=== PATIENT | female | born 1935 | race Caucasian/White ===

== ENCOUNTER 2017-04-10 13:17 | Inpatient (IN) | payer MEDICARE ==
--- OUTSIDE RECORDS SUMMARY | 2017-04-10 13:21 | XMS | Clinical Summary ---
:1935 Author Organization [facility] Address [address] [place] [address] Phone Care Team Providers Name Role Phone , Primary Care Provider Unavailable Allergies Not on File Current Medications Not on file Active Problems Not on file Social History Tobacco Use Types Packs/Day Years Used Date Never Assessed Sex Assigned at Date Recorded Not on file Last Filed Vital Signs Not on file Plan of Treatment Not on file Results Not on filefrom Last 3 Months
--- OUTSIDE RECORDS SUMMARY | 2017-04-10 13:21 | XMS | Clinical Summary ---
:1935 Author Organization [facility] Address [address] [place] [id number] Phone Care Team Providers Name Role Phone , Primary Care Provider Unavailable Allergies Active Allergy Reactions Severity Noted Date Comments Sulfa (Sulfonamide Antibiotics) Rash Low 02/23/2014 Current Medications Prescription Sig. Disp. Refills Start Date End Date Status calcium carbonate Take 600 mg by mouth Active (OS-SARAY) 600 mg (1,500 2 (two) times daily mg) Tab with breakfast and dinner. cholecalciferol, vitamin Take by mouth. Active D3, 2,000 unit Cap fluticasone (FLOVENT Inhale 1 puff by Active HFA) 110 mcg/actuation mouth via inhaler 2 inhaler (two) times daily. fluticasone-salmeterol Inhale 1 puff by Active (ADVAIR) 500-50 mcg/dose mouth via inhaler 2 diskus inhaler (two) times daily. levothyroxine Take 88 mcg by mouth Active (SYNTHROID, LEVOTHROID) daily. 88 MCG tablet MAGNESIUM CHLORIDE Take 128 mg by mouth Active (SLOW-MAG ORAL) daily. meloxicam (MOBIC) 7.5 MG Take 7.5 mg by mouth Active tablet daily. metoprolol (LOPRESSOR) Take 25 mg by mouth Active 25 MG tablet 2 (two) times daily. NIFEdipine (ADALAT CC) Take 30 mg by mouth Active 30 MG 24 hr tablet daily. nitroglycerin Place 0.4 mg under Active (NITROSTAT) 0.4 MG SL the tongue every 5 tablet (five) minutes as needed for Chest pain. omeprazole (PRILOSEC) 20 Take 20 mg by mouth Active MG capsule daily. PARoxetine (PAXIL) 20 MG Take 20 mg by mouth Active tablet every morning. POLYETHYLENE GLYCOL 3350 Take by mouth. Active (MIRALAX ORAL) pregabalin (LYRICA) 50 Take 50 mg by mouth Active MG capsule 3 (three) times daily. simvastatin (ZOCOR) 40 Take 40 mg by mouth Active MG tablet nightly. tiotropium (SPIRIVA) 18 Inhale 18 mcg by Active mcg inhalation capsule mouth via inhaler daily. aspirin 81 MG EC tablet Take 81 mg by mouth Active daily. 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;Intraductal carcinoma in situ of right breast 01/28/2017 Outside Orders Radiology Joana Rasmussen Intraductal carcinoma in YUNG [place] situ of right breast (Primary Dx) 01/28/2017 Outside Orders Radiology Joana Rasmussen Intraductal carcinoma YUNG [place] (Primary Dx) from Last 3 Months Social History Tobacco Use Types Packs/Day Years Used Date Former Smoker Smokeless Tobacco: Never Used Comments:Quit 1996 Alcohol Use Drinks/Week oz/Week Comments No Sex Assigned at Date Recorded Not on file Last Filed Vital Signs Vital Sign Reading Time Taken Blood Pressure 119/48 03/30/2014 3:35 PM CDT Pulse 67 03/30/2014 3:47 PM CDT Temperature 36.4 C (97.6 F) 03/30/2014 2:20 PM CDT Respiratory Rate 19 03/30/2014 3:47 PM CDT Oxygen Saturation 94% 03/30/2014 3:47 PM CDT Inhaled Oxygen Concentration - - Weight 120.7 kg (266 lb) 03/30/2014 10:15 AM CDT Height 165.1 cm (5' 5") 03/30/2014 10:15 AM CDT Body Mass Index 44.26 03/30/2014 10:15 AM CDT Plan of Treatment Not on file Results MM digital mammo diagnostic right (01/28/2017 12:12 PM) Specimen Performing Laboratory GE RIS Narrative #[id number] - DIGITAL, MAMMO, UNILATERAL, RIGHT INCLUDING CAD UNILATERAL RIGHT DIGITAL DIAGNOSTIC MAMMOGRAM 3D/2D WITH CAD: 01/28/2017 CLINICAL: History of left mastectomy and right lumpectomy for bilateral breast cancer presents for annual mammography of the right breast. No new complaints. Comparison is made to exams dated:01/16/2016 mammogram, 01/10/2015 mammogram, and 03/30/2014 [facility]. There are scattered fibroglandular elements in the right breast that could obscure a lesion on mammography. Tomosynthesis 3D imaging of the right breast was also performed. Current study was also evaluated with a Computer Aided Detection (CAD) system. Vascular calcifications are present in the right breast. Postsurgical changes of right lumpectomy are noted. No significant masses, calcifications, or other findings are seen in the breast. There has been no significant interval change. IMPRESSION: BENIGN There is no mammographic evidence of malignancy in the right breast. A 1 year screening mammogram is recommended. The results and recommendation(s) were discussed with Jeramie Lara before she left our facility. Nathalie Billings M.D. ds/:01/28/2017 12:12:48 Normal [facility]Rad 1-2 Mammogram BI-RADS: 2 Benign Procedure Note Interface, External Ris In - 01/29/2017 7:20 AM CDT #[id number] - DIGITAL, MAMMO, UNILATERAL, RIGHT INCLUDING CAD UNILATERAL RIGHT DIGITAL DIAGNOSTIC MAMMOGRAM 3D/2D WITH CAD: 01/28/2017 CLINICAL: History of left mastectomy and right lumpectomy for bilateral breast cancer presents for annual mammography of the right breast. No new complaints. Comparison is made to exams dated: 01/16/2016 mammogram, 01/10/2015 mammogram, and 03/30/2014 [facility]. There are scattered fibroglandular elements in the right breast that could obscure a lesion on mammography. Tomosynthesis 3D imaging of the right breast was also performed. Current study was also evaluated with a Computer Aided Detection (CAD) system. Vascular calcifications are present in the right breast. Postsurgical changes of right lumpectomy are noted. No significant masses, calcifications, or other findings are seen in the breast. There has been no significant interval change. IMPRESSION: BENIGN There is no mammographic evidence of malignancy in the right breast. A 1 year screening mammogram is recommended. The results and recommendation(s) were discussed with Ms. Lara before she left our facility. Nathalie Billings M.D. ds/:01/28/2017 12:12:48 Normal BiRad 1-2 Mammogram BI-RADS: 2 Benign from Last 3 Months Advance Directives Patient has advance directives. For more information, please contact:[address] [phone]
[2017-04-10] MEDS ORDERED: Dexamethasone 4 mg/ml Vial ONE (14:07)
[2017-04-10 14:21] LABS: Oxyhemoglobin 91.4 % (94.0-97.0); Sodium 136 mmol/L (135-148)
[2017-04-10 14:21] LABS: Hematocrit 38.7 % (36.0-47.0); Mean Platelet Volume 8.7 fL (7.4-10.4); Red Blood Cell (RBC) Count 4.34 mill/uL (4.20-5.40); White Blood Cell (WBC) Count 6.5 thou/uL (4.8-10.8)
[2017-04-10 14:26] LABS: Prothrombin Time 13.6 SEC (12.0-14.7)
[2017-04-10 14:27] LABS: PTT 24.3 SEC (22.9-36.1)
--- NOTE | 2017-04-10 14:31 | RAD ---
PORTABLE AP CHEST XRAY: DATE: 04/10/17. HISTORY: Chest pain and shortness of breath. COMPARISON: 03/25/17. FINDINGS: Cardiac silhouette and pulmonary vasculature are within normal limits for the portable technique of the study. There is mild interstitial prominence again seen at the right lung base which is overall stable from the prior study. Surgical clips again overlie the left chest, left axillary region, as well as lower left neck. Vascular calcification is seen in the thoracic aorta. There has been no interval change when compared to the prior exam. IMPRESSION: Stable chest including stable mild prominence of interstitial densities at the right lung base which are overall nonspecific. POS: [facility]
[2017-04-10 14:32] LABS: Mode RA; Modified Allen's Test NOT DONE; Vent NO
[2017-04-10 14:35] LABS: Lactic Acid - Sepsis 1.3 mmol/L (0.5-2.2)
[2017-04-10 14:44] LABS: Neutrophil 39 % (42-75); Troponin I Less than 0.010 ng/mL (< 0.028)
[2017-04-10 14:51] LABS: ALT (SGPT) 56 U/L (8-55); AST (SGOT) 52 U/L (5-34); Alkaline Phosphatase 57 U/L (40-150); Anion Gap 12 mmol/L (10-20); BUN (Urea Nitrogen) 28 mg/dL (9.8-20.1); Bilirubin, Total 0.2 mg/dL (0.2-1.2); CK (CPK) 114 U/L (29-168); Calc. Creatinine Clearance 0 mL/min (70-130); Calcium 8.9 mg/dL (7.8-10.44); Carbon Dioxide 23 mmol/L (23-31); Chloride 103 mmol/L (98-107); Estimated GFR-MDRD 39; Globulin 3.4 g/dL (2.4-3.5); Lipase 32 U/L (8-78); Protein, Total 6.9 g/dL (6.0-8.3)
--- NOTE | 2017-04-10 15:05 | CT ---
CT BRAIN WITHOUT CONTRAST: Date: 04/10/17 HISTORY: Fall, headache. FINDINGS: Comparison made with exam of 12/05/10. Changes of cortical atrophy and chronic small vessel ischemic disease are again seen. There is a sma ll focal area of low density in the right thalamus, which was not seen on the previous study. No tra nscortical infarct, hemorrhage, midline shift, or abnormal extra-axial fluid collections are seen. T he bony calvarium is intact. The visualized paranasal sinuses and mastoid air cells are well aerated . IMPRESSION: Age-indeterminate lacunar infarction in the right thalamus. POS: [facility]
--- NOTE | 2017-04-10 15:09 | CT ---
CT OF PELVIS PERFORMED WITHOUT CONTRAST ENHANCEMENT: Date: 04/10/17 HISTORY: Fall last week with right hip pain, now with increasing left-sided hip pain. FINDINGS: The visualized intrapelvic contents are unremarkable. No pelvic masses or fluid collections. There are arthritic changes of both SI joints. There is old post-traumatic change to the left side o f the symphysis. I do not see any signs of an acute fracture. The bones are demineralized. If patien t has continued pain, consideration for MRI would be recommended. IMPRESSION: No CT evidence for any acute fracture. POS: [facility]
--- NOTE | 2017-04-10 16:21 | CT ---
CT PULMONARY ANGIOGRAM WITH IV CONTRAST AND 3D POSTPROCESSING: HISTORY: Elevated D-dimer, cough. FINDINGS: There is a significant amount of motion seen (the patient was coughing during the scan). The peripheral branches of the pulmonary arterial vasculature are not satisfactorily evaluated due t o artifact. The main pulmonary arteries show no filling defects. The thoracic aorta is well opacif ied without aneurysm or dissection. No pleural or pericardial effusions are noted. No pneumothorac es, focal areas of consolidation, or lung masses are noted. There are degenerative changes in the s pine. A 9 mm prevascular lymph node is noted. IMPRESSION: Exam limited due to motion. No evidence of central pulmonary embolism. POS: [facility]
[2017-04-10] MEDS ORDERED: ISOVUE-370 76%-LOCM 1 ML ONE (16:40)
[2017-04-10 17:02] LABS: Bilirubin Negative (Negative); Blood, Urine Negative (Negative); Glucose, Urine (Dipstick) Negative (Negative); Ketone, Urine Negative (Negative); Nitrite Negative (Negative); Protein, Urine (Dipstick) Negative (Neg-Trace); Urobilinogen 0.2 mg/dL (0.2-1.0)
[2017-04-10 17:10] LABS: Bacteria/HPF Rare-Few HPF (None Seen); Hyaline Casts/LPF 7-10 HYALINE CAST LPF (0-3 Hyaline)
[2017-04-10 17:24] LABS: RBC/HPF None Seen HPF (0-3)
[2017-04-10] MEDS ORDERED: Dextrose 50% Abboject 50 ML SYRINGE SLOW IVP PRN (18:15)
[2017-04-10] MEDS ORDERED: HYDROcodone/Acetaminophen 5/325 mg Tablet PO PRN (18:15)
[2017-04-10] MEDS ORDERED: Loratadine 10 MG TAB PO SCH (18:15)
[2017-04-10] MEDS ORDERED: Dextrose 5% in Water 1,000 ML IV PRN (18:15)
[2017-04-10] MEDS ORDERED: HumaLOG 300 UNITS/3 ML VIAL SC PRN ×2 (18:15)
[2017-04-10] MEDS ORDERED: Lorazepam 0.5 MG TAB PO PRN (18:15)
[2017-04-10] MEDS ORDERED: Acetaminophen 325 MG TAB PO PRN (18:15)
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
[2017-04-10] MEDS: Mometasone/Formoterol 120 PUFF INHALER INH SCH (18:58)
[2017-04-10] MEDS: Atorvastatin Calcium 20 MG TAB PO SCH (20:51)
[2017-04-10] MEDS: Docusate 100 MG CAP PO SCH (20:51)
[2017-04-10] MEDS: guaiFENesin ER 600 MG TAB PO SCH (20:51)
[2017-04-10] MEDS: Azithromycin 500 MG in Sodium Chloride 0.9% 250 ML 250 ML IVPB SCH (20:51)
[2017-04-10] MEDS: Pregabalin 50 MG CAP PO SCH (20:52)
[2017-04-10] MEDS: cefTRIAXone\\ROCEPHIN 1 GM in Sodium Chloride 0.9% 100 ML IVPB SCH (22:27)
[2017-04-11] MEDS: Levothyroxine Sodium 88 MCG TAB PO SCH (05:22)
[2017-04-11 06:09] LABS: Anion Gap 10 mmol/L (10-20); BUN (Urea Nitrogen) 21 mg/dL (9.8-20.1); Calc. Creatinine Clearance 65 mL/min (70-130); Calcium 8.5 mg/dL (7.8-10.44); Carbon Dioxide 26 mmol/L (23-31); Chloride 106 mmol/L (98-107); Cholesterol 112 mg/dl (< 200 Desired); Estimated GFR-MDRD 55; LDL Cholesterol, Calculated 47 mg/dL
[2017-04-11 06:10] LABS: Band 2 % (5-11); Hematocrit 34.8 % (36.0-47.0); Mean Platelet Volume 8.6 fL (7.4-10.4); Neutrophil 71 % (42-75); Red Blood Cell (RBC) Count 3.89 mill/uL (4.20-5.40)
[2017-04-11] MEDS: Mometasone/Formoterol 120 PUFF INHALER INH SCH ×2 (07:42→19:20)
[2017-04-11] MEDS ORDERED: Spiriva 18 MCG CAP (Box of 5 Caps) INH SCH (09:00)
[2017-04-11] MEDS: NIFEdipine XL 30 MG TAB PO SCH (09:19)
[2017-04-11] MEDS: Docusate 100 MG CAP PO SCH ×2 (09:19→20:48)
[2017-04-11] MEDS: guaiFENesin ER 600 MG TAB PO SCH ×2 (09:20→20:48)
[2017-04-11] MEDS: Aspirin 325 mg Enteric Coated Tablet PO SCH (09:20)
[2017-04-11] MEDS: predniSONE 20 MG TAB PO SCH (09:20)
[2017-04-11] MEDS: Enoxaparin Sodium 30 MG/0.3 ML SYRINGE SC SCH (09:20)
[2017-04-11] MEDS: Potassium Chloride 20 MEQ TAB PO SCH (09:20)
--- NOTE | 2017-04-11 11:36 | PDOC.PN ---
- Subjective Encounter Start Date: 04/11/17 Encounter Start Time: 11:34 Ms. Lara says she does not feel much better today than she did yesterday. She still feels very congested especially in her head. - Objective Resuscitation Status: Resuscitation Status FULL:Full Resuscitation MAR Reviewed: Yes Vital Signs & Weight: Vital Signs (12 hours) Temp Pulse Resp BP Pulse Ox 04/11/17 09:19 79 04/11/17 08:00 98.8 F 79 20 97 04/11/17 07:42 79 20 97 04/11/17 07:40 98.8 F 74 18 146/57 H 97 04/11/17 07:34 97 04/11/17 07:31 79 20 97 04/11/17 06:18 98.0 F 74 18 169/59 H 98 04/11/17 04:00 97.8 F 83 18 166/72 H 94 L 04/11/17 00:13 74 18 95 Weight Weight 204 lb 3.2 oz I&O: 04/10/17 04/11/17 04/12/17 06:59 06:59 06:59 Intake Total 750 480 Balance 750 480 Result Diagrams: 04/11/17 05:14 04/11/17 05:14 Additional Labs: Accuchecks 04/11/17 04/10/17 04/10/17 05:48 20:42 18:23 POC Glucose 141 H 195 H 134 H Phys Exam - Physical Examination HEENT: PERRLA Respiratory: no wheezing + rhonchi bilaterally, Cardiovascular: RRR, no significant murmur Gastrointestinal: soft, non-tender, positive bowel sounds Musculoskeletal: no edema Dx/Plan (1) Acute and chronic respiratory failure Code(s): J96.20 - ACUTE AND CHR RESP FAILURE, UNSP W HYPOXIA OR HYPERCAPNIA Status: Acute (2) COPD exacerbation Code(s): J44.1 - CHRONIC OBSTRUCTIVE PULMONARY DISEASE W (ACUTE) EXACERBATION Status: Acute (3) CVA (cerebral vascular accident) Code(s): I63.9 - CEREBRAL INFARCTION, UNSPECIFIED Status: Acute - Plan * COPD- will continue Azithromycin and Rocephin, Prednisone * Allergic rhinitis- will add Flonase, and benadryl in the evenings * CVA- age uncertain- MRI, echo and carotids are pending * Continue aspirin, Lipitor.
[2017-04-11] MEDS ORDERED: Fluticasone Propionate Nasal Spray 16 gm Bottle NASAL SCH (11:45)
--- NOTE | 2017-04-11 11:55 | MRI ---
MRI BRAIN NONCONTRAST: HISTORY: 81-year-old female with age-indeterminate lacunar infarction in the right thalamus, as seen on yeste rday's CT. FINDINGS: The ventricles are normal in size and configuration. There is no restricted diffusion, midline shif t or any other mass effect, recent intraaxial hemorrhage, or extraaxial fluid collection. There is a moderate degree of T2-hyperintensities in the cerebral white matter consistent with chronic ischemi c white matter changes due to microvascular atherosclerosis. There is a small, approximately 0.8 x 0 .4 cm lesion in the right thalamus, without restricted diffusion. IMPRESSION: 1. Moderate chronic ischemic white matter changes. 2. Small old lacunar infarction in the right thalamus. 3. No acute findings. jnr POS: [facility]
--- NOTE | 2017-04-11 12:30 | ULT ---
ULTRASOUND VENOUS DOPPLER BILATERAL: Date: 04/11/17 HISTORY: Hip pain for 2 months. Right hip pain. History of deep venous thrombosis. COMPARISON: Doppler 2013. TECHNIQUE: Real-time Oro scale with color Doppler and spectral analysis of bilateral lower extremity venous sy stems was performed. The common femoral, femoral, proximal portions of greater saphenous, and deep f emoral veins, as well as the popliteal and posterior tibial veins were interrogated. FINDINGS: Normal flow, augmentation, and compression. IMPRESSION: No deep venous thrombosis. POS: [facility]
--- NOTE | 2017-04-11 12:34 | ULT ---
ULTRASOUND CAROTID DOPPLER: Date: 04/11/17 HISTORY: Cerebrovascular accident. COMPARISON: None. TECHNIQUE: Real-time Oro scale and color Doppler evaluation of the extracranial carotid arteries and vertebral arteries was performed with the linear transducer. FINDINGS: Elevated peak systolic velocity in the right mid and distal internal carotid arteries measuring 138 and 140 cm/second, respectively. There is also mildly elevated peak systolic velocity within the lef t internal carotid artery. Antegrade flow to both vertebral arteries. IMPRESSION: 1. 50-69% stenosis right internal carotid artery. 2. 50-69% stenosis of the left proximal internal carotid artery. 3. CT angiogram may be beneficial in this patient. POS: [facility]
[2017-04-11 13:37] VITALS: BMI 31.0
--- NOTE | 2017-04-11 16:47 | PDOC.EVN ---
Event Note - Event Note Event Note: Discussed the results of the carotid doppler with Ms. Lara. She says she would like to proceed with the CTA.
[2017-04-11] MEDS: Azithromycin 500 MG in Sodium Chloride 0.9% 250 ML 250 ML IVPB SCH (20:46)
[2017-04-11] MEDS: cefTRIAXone\\ROCEPHIN 1 GM in Sodium Chloride 0.9% 100 ML IVPB SCH (20:47)
[2017-04-11] MEDS: Atorvastatin Calcium 20 MG TAB PO SCH (20:47)
[2017-04-11] MEDS: Pregabalin 50 MG CAP PO SCH (20:49)
[2017-04-11] MEDS ORDERED: diphenhydrAMINE HCl 25 MG CAP PO SCH (21:00)
[2017-04-12] MEDS: Levothyroxine Sodium 88 MCG TAB PO SCH (05:34)
[2017-04-12] MEDS: Potassium Chloride 20 MEQ TAB PO SCH (08:23)
[2017-04-12] MEDS: Aspirin 325 mg Enteric Coated Tablet PO SCH (08:24)
[2017-04-12] MEDS: Docusate 100 MG CAP PO SCH (08:24)
[2017-04-12] MEDS: NIFEdipine XL 30 MG TAB PO SCH (08:24)
[2017-04-12] MEDS: predniSONE 20 MG TAB PO SCH (08:24)
[2017-04-12] MEDS: Enoxaparin Sodium 30 MG/0.3 ML SYRINGE SC SCH (08:25)
[2017-04-12] MEDS: guaiFENesin ER 600 MG TAB PO SCH (08:25)
[2017-04-12] MEDS ORDERED: Fluticasone Propionate Nasal Spray 16 gm Bottle NASAL SCH (09:00)
[2017-04-12] MEDS: Mometasone/Formoterol 120 PUFF INHALER INH SCH (09:24)
--- NOTE | 2017-04-12 10:24 | CT ---
CT ANGIOGRAM OF NECK WITH CONTRAST: Date: 04/12/17 HISTORY: 81-year-old female with carotid atherosclerotic disease. Abnormal carotid Doppler ultrasound. TECHNIQUE: Following IV contrast bolus injection, arterial bolus chasing technique scan performed from bottom o f yadiel to the mid orbits. Coronal and sagittal 3D MIP reconstructions. FINDINGS: Nonspecific diffuse interstitial changes throughout the visualized upper lung masters. Atheroscleroti c calcification and tortuosity of many of the major arteries. Tortuous, medialized bilateral common carotid arteries and carotid bulbs in retropharyngeal locations. Moderate calcified plaque at the bi lateral proximal internal carotid arteries, with estimated approximately 30% stenosis on the right a nd approximately 10-20% stenosis in the left. The rest of the internal carotid arteries demonstrate no high grade stenosis. Likewise, no high grade stenosis identified in the bilateral common carotids , bilateral subclavians, bilateral vertebrals, and brachiocephalic. Bovine origin of left common car otid from innominate artery. Slightly dominant left vertebral artery arises from the aortic arch rat her than from the left subclavian artery, an anatomical variant. Severe cervical spondylosis. No hig h grade stenosis or occlusion identified in the proximal portions of the havasupai of Ochoa. Severe DJ D of bilateral TMJ's. IMPRESSION: 1. Atherosclerosis of carotids and most of the major arteries of the neck. 2. No high grade stenosis of internal carotid arteries. 3. Severe cervical spondylosis. 4. Severe osteoarthrosis of bilateral temporomandibular joints. POS: [facility]
--- NOTE | 2017-04-12 14:09 | PDOC.PN ---
- Subjective Encounter Start Date: 04/12/17 Encounter Start Time: 14:07 Ms. Lara is feeling a little better. - Objective Resuscitation Status: Resuscitation Status FULL:Full Resuscitation MAR Reviewed: Yes Vital Signs & Weight: Vital Signs (12 hours) Temp Pulse Resp BP Pulse Ox 04/12/17 11:44 97.9 F 103 H 16 142/76 H 91 L 04/12/17 09:24 80 24 H 97 04/12/17 09:10 97 04/12/17 09:02 83 24 H 97 04/12/17 08:24 77 04/12/17 07:38 98 F 77 18 155/60 H 97 04/12/17 07:17 97.5 F L 86 16 97 04/12/17 05:35 97.5 F L 86 16 151/67 H 96 04/12/17 03:54 98.0 F 88 16 158/62 H 94 L Weight Admit Weight 204 lb 3.2 oz Weight 204 lb 3.2 oz I&O: 04/11/17 04/12/17 04/13/17 06:59 06:59 06:59 Intake Total 750 1200 960 Balance 750 1200 960 Result Diagrams: 04/11/17 05:14 04/11/17 05:14 Additional Labs: Accuchecks 04/12/17 04/12/17 04/11/17 10:54 05:32 21:38 POC Glucose 120 H 100 153 H 04/11/17 17:12 POC Glucose 194 H Phys Exam - Physical Examination HEENT: PERRLA Respiratory: clear to auscultation bilateral with the exception of some mild expiratory wheezing Cardiovascular: RRR, no significant murmur, no rub Gastrointestinal: soft, non-tender, positive bowel sounds Musculoskeletal: no edema Dx/Plan (1) Acute and chronic respiratory failure Code(s): J96.20 - ACUTE AND CHR RESP FAILURE, UNSP W HYPOXIA OR HYPERCAPNIA Status: Acute (2) COPD exacerbation Code(s): J44.1 - CHRONIC OBSTRUCTIVE PULMONARY DISEASE W (ACUTE) EXACERBATION Status: Acute (3) CVA (cerebral vascular accident) Code(s): I63.9 - CEREBRAL INFARCTION, UNSPECIFIED Status: Acute - Plan * COPD exacerbation- improving * CVA- CTA results and Echo results noted- will not change therapy * She is stable for discharge home..
[2017-04-12 15:25] VITALS: BP 174/60; TEMP 98.7
--- NOTE | 2017-04-12 16:41 | DIS ---
DATE OF ADMISSION: 04/10/2017 DATE OF DISCHARGE: 04/12/2017 PRIMARY CARE PHYSICIAN: Ariel Gallegos M.D. DISCHARGE DISPOSITION: Home. PRIMARY DISCHARGE DIAGNOSES: 1. Acute on chronic respiratory failure with hypoxemia secondary to chronic obstructive pulmonary d isease exacerbation. 2. Cerebrovascular accident. 3. Chronic fatigue. 4. Hypothyroidism. 5. History of breast cancer. 6. Hypertension. 7. Diabetes mellitus. 8. Allergic rhinitis. 9. Obstructive sleep apnea on continuous positive airway pressure. DISCHARGE MEDICATIONS: Include azithromycin 250 mg p.o. daily, DuoNebs 1 treatment q.i.d. for 5 day s and then q.6 hours as needed, metformin 250 mg at bedtime, metformin 850 mg at bedtime, Benadryl 2 5 mg at bedtime, Effexor 75 mg at bedtime, Spiriva 18 mcg inhaled daily, tamoxifen 20 mg at bedtime, simvastatin 40 mg at bedtime, omeprazole 20 mg twice a day, Procardia 30 mg daily, Lopressor 25 mg twice daily, meloxicam 7.5 mg twice a day, Slow-Mag 64 mg daily, loratadine 10 mg at bedtime, DuoNeb s 1 treatment q.i.d., Neurontin 300 mg twice a day, Lasix 40 mg as needed, donepezil 5 mg twice donny y, vitamin D 2000 units at bedtime, calcium carbonate, magnesium oxide, copper, magnesium, and zinc 1 tablet twice a day, Symbicort 160/4.5 two puffs twice daily, and aspirin 81 mg a day. PROCEDURES DONE DURING ADMISSION: The patient had a CT angiogram of the chest showing no evidence o f any central pulmonary embolism. The patient had a CT scan of the brain showing an age indetermina te lacunar infarct in the right thalamus. The patient had a CT scan of the pelvis showing no eviden ce for fracture. She had bilateral carotid Dopplers showing 50%-69% stenosis in both the right and left internal carotid artery. The patient had a venogram of the lower extremity showing no deep vei n thrombosis of either lower extremity. She had an MRI of the brain showing moderate chronic ischem ic white matter changes. There was a small old lacunar infarct in the right thalamus and she had a CT angiogram showing arthrosclerosis of the carotids in most of the major arteries of the neck, but there was no high-grade stenosis in the internal carotid arteries. She had an echocardiogram in [facility] there was normal LV size and thickness. The systolic ejection fraction was 60-65%. She had some E to A flow reversal noted suggestive of diastolic dysfunction. CODE STATUS: FULL CODE. ALLERGIES: To AVOCADO and SULFA. HOSPITAL COURSE: Ms. Lara is a very pleasant 81-year-old female that presented to the emergency room complaining of cough and congestion. She says which had not improved with outpatient treatmen t. She had been given a course of Levaquin without much improvement. She also felt generally weak and tired and fatigued. She was admitted due to an acute on chronic respiratory failure. She was o riginally hypoxic requiring supplemental oxygen; however, this was later able to be titrated. She w as placed on antibiotics and steroids and improved. It was also found by CT scan that she had a pre vious lacunar infarct. She had an evaluation for this which was essentially negative except for jessica e carotid plaque, but no flow-limiting disease. She complained of feeling fatigued throughout much of her hospital stay and upon further questioning, it was found that the patient also has obstructiv e sleep apnea in which she does not use her CPAP machine on a regular basis. This was revealed to kenzie knight by the patient's daughter at the time of discharge. In addition to that, I suspect she has signif icant allergic rhinitis which hampers her sleep as well and that along with COPD is likely the cause of her chronic fatigue symptoms. She was instructed to follow up with using her CPAP on a regular basis and she may need a repeat sleep study as this has been almost 2 years and likely time for anot her test and also she was given some tips with regards to the allergic rhinitis as well and she is t o follow up with Dr. Gallegos in approximately 3-5 days on either Thursday or Thursday.
[2017-04-12] MEDS ORDERED: Gabapentin 300 MG CAP PO SCH (21:00)
[2017-04-12] MEDS ORDERED: FLU VACC TS2017-18 (>65YR) 0.5 ML SYRINGE IM ONE (21:00)
[2017-04-12] MEDS ORDERED: Metoprolol Tartrate 25 MG TAB PO SCH (21:00)
== END 2017-04-12 16:06 | disposition home or self-care (01) | DRG 190 ==
LOC: ERS 13:17 → 2NO 15:55 → 2SE 04-11 06:22
PROVIDERS: ADMIT Internal Medicine; ATTEND Internal Medicine
DX: J44.1 Chronic obstructive pulmonary disease with (acute) exacerbation (principal); J96.21 Acute and chronic respiratory failure with hypoxia; C50.919 Malignant neoplasm of unspecified site of unspecified female breast; I10 Essential (primary) hypertension; Z23 Encounter for immunization; Z91.81 History of falling; E03.9 Hypothyroidism, unspecified; Z88.2 Allergy status to sulfonamides; Z87.891 Personal history of nicotine dependence; Z79.818 Long term (current) use of other agents affecting estrogen receptors and estrogen levels; E11.9 Type 2 diabetes mellitus without complications; Z79.84 Long term (current) use of oral hypoglycemic drugs; G47.33 Obstructive sleep apnea (adult) (pediatric); J30.9 Allergic rhinitis, unspecified; Z96.653 Presence of artificial knee joint, bilateral; Z86.73 Personal history of transient ischemic attack (TIA), and cerebral infarction without residual deficits
CPT/HCPCS: 36415; 36416; 70450; 70498; 70551; 71010; 71275; 72192; 80048; 80053; 80061; 81003; 81015; 82553; 82805; 83605; 83690; 83880; 84439; 84443; 84484; 85025; 85379; 85610; 85730; 87040; 87086; 90471; 90682; 93005; 93306; 93880; 93970; 94640; 96361; 96365; 96366; 96375; G0008; G8978-GP-CJ; G8979-GP-CJ; G8980-GP-CJ; J0456; J0696; J1100; J1650; J1956; J7050; J7506; J7620; Q2036

== ENCOUNTER 2017-08-10 07:43 | Outpatient (CLI) | payer MEDICARE ==
--- NOTE | 2017-08-10 11:35 | CT ---
CT ABDOMEN AND PELVIS WITH ORAL AND IV CONTRAST: Date: 08/10/17 HISTORY: Right upper quadrant abdominal pain. FINDINGS: There are chronic changes in the lung bases, also seen on the CT pulmonary angiogram of 04/10/17. There is a 1.5 cm cyst in the left lobe of the liver. Multiple calcified gallstones are present. The spleen, pancreas, adrenal glands, and kidneys are normal. No free air, free fluid, or lymphadenopathy seen in the abdomen or pelvis. The small bowel loops are not abnormally dilated. A normal appearing appendix is present. There are vascular calcifications wit hout evidence of aneurysmal dilatation of the abdominal aorta. There are postop changes of vertebropl asty in the lower thoracic/upper lumbar spine. There are old healed fractures of the superior pubic r ami. A few scattered colonic diverticula are noted. The patient is post hysterectomy. IMPRESSION: 1. Liver cyst. 2. Cholelithiasis. 3. Mild colonic diverticulosis. POS: [facility]
--- NOTE | 2017-08-10 11:42 | RAD ---
TWO VIEWS OF THE CHEST: HISTORY: COPD and persistent cough. COMPARISON: 03/25/2017 FINDINGS: Two views of the chest show an enlarged but stable cardiomediastinal silhouette. There is no evidenc e of consolidation, mass, or pleural effusion. Degenerative changes are seen in the spine. Vertebro plasty cement is seen within the compression fractures of the lower thoracic spine. IMPRESSION: No evidence of acute cardiopulmonary disease. POS: [facility]
== END 2017-08-10 07:44 | disposition home or self-care (01) ==
LOC: CT 07:43
PROVIDERS: ATTEND General Practice
DX: R10.11 Right upper quadrant pain (principal); R05 Cough; K76.89 Other specified diseases of liver; K80.20 Calculus of gallbladder without cholecystitis without obstruction; K57.30 Diverticulosis of large intestine without perforation or abscess without bleeding
CPT/HCPCS: 71046; 74177

== ENCOUNTER 2017-09-30 13:03 | Outpatient (CLI) | payer MEDICARE | END 2017-09-30 13:04 | disposition home or self-care (01) | LOC: BICMRI 13:03 | PROVIDERS: ATTEND Anesthesiology Pain Medicine | DX: S32.050A Wedge compression fracture of fifth lumbar vertebra, initial encounter for closed fracture (principal); M47.896 Other spondylosis, lumbar region | CPT/HCPCS: 72148 ==

== ENCOUNTER 2018-02-23 13:16 | Outpatient (CLI) | payer MEDICARE | END 2018-02-23 13:17 | disposition home or self-care (01) | LOC: BICMAMMO 13:16 | PROVIDERS: ATTEND General Practice | DX: Z13.820 Encounter for screening for osteoporosis (principal); Z85.3 Personal history of malignant neoplasm of breast; Z80.3 Family history of malignant neoplasm of breast | CPT/HCPCS: 77065; G0279 ==

== ENCOUNTER 2019-04-01 13:09 | Day surgery (SDC) | payer MEDICARE ==
[2019-04-01] MEDS ORDERED: Bupivacaine/Epinephrine 0.25% 30 ML VIAL ONE (13:23)
[2019-04-01] MEDS ORDERED: Bacitracin Zinc Ointment 30 gm TUBE ONE (13:30)
[2019-04-01] MEDS ORDERED: Lidocaine 1% PF 5 ML VIAL ONE (13:39)
[2019-04-01] MEDS ORDERED: Ondansetron PF 4 MG/2 ML Vial ONE (13:39)
[2019-04-01] MEDS ORDERED: Fentanyl 100 MCG/2 ML VIAL ONE ×2 (13:39→15:25)
[2019-04-01] MEDS ORDERED: ePHEDrine 50 MG/ML VIAL ONE (13:39)
[2019-04-01] MEDS ORDERED: PROPOFOL 200 MG/20 ML VIAL ONE (13:39)
--- NOTE | 2019-04-01 15:08 | HP ---
CHIEF COMPLAINT: Fall, head lac. HISTORY OF PRESENT ILLNESS: This is an 83-year-old female, who presents with a history of fall. She tripped over her oxygen carrier in her house, coming out of the restroom. She hit her head. No loss of consciousness. She had bleeding from her forehead. She has an open laceration to her forehead and scalp. Seen at [facility] by Dr. Huffman. CT scan of the head is within normal limits. She is awake, alert, hemodynamically stable. PAST MEDICAL HISTORY: Includes COPD, colon cancer, breast cancer, hypertension, and diabetes mellitus type 2. SURGICAL HISTORY: Colon surgery and breast surgery. MEDICATIONS: Taken daily, 1. Metoprolol. 2. Meloxicam. 3. Metformin. 4. Spiriva. 5. Claritin. 6. Procardia. 7. Aspirin. ALLERGIES: SULFA. SOCIAL HISTORY: Former smoker. No alcohol or other drugs. REVIEW OF SYSTEMS: Ten-system review of systems is otherwise negative unless described above. PHYSICAL EXAMINATION: VITAL SIGNS: Her blood pressure is 140/88. Her pulse is 73. HEENT: There is a 10 cm laceration extending from the medial eyebrow up. She has intact facial nerve temporal branches, zygomatic branches. She has all branches of the facial nerve appear intact. She is able to blink, open her eyes and there are equal features on both sides. No visual changes. She has a small amount of bruising around the medial aspect of her left eye. Sclerae anicteric. Oropharynx is clear. NECK: No lymphadenopathy. CHEST: Clear. HEART: Regular rate and rhythm. ABDOMEN: Soft, nontender, nondistended. EXTREMITIES: No extremity deformities. LABORATORY DATA: CT head negative for acute trauma. ASSESSMENT: Laceration to forehead and scalp. PLAN: Washout, closure in the operating room. Risks, benefits, and alternatives were discussed. She gives consent. We will do this today. Job ID: [id number]
--- NOTE | 2019-04-01 21:30 | OP ---
DATE OF PROCEDURE: 04/01/2019 PREOPERATIVE DIAGNOSIS: Complex laceration of left forehead and scalp, 11 cm in length. POSTOPERATIVE DIAGNOSIS: Complex laceration of left forehead and scalp, 11 cm in length. PROCEDURE PERFORMED: Layered wound closure, moderate complexity to forehead and scalp, 11 cm in length. ANESTHESIA: General. ESTIMATED BLOOD LOSS: Minimal. COMPLICATIONS: None. SPECIMEN: None. DESCRIPTION OF PROCEDURE: The patient was taken to the operating room and laid supine on the table. After general anesthetic was obtained, the area around the laceration and the forehead and upper face and scalp was prepped and draped in a sterile fashion. The open laceration was irrigated copiously. There was undermining to the left of this just above her medial eyebrow. The wound was irrigated out and was closed using 3-0 Vicryl in the subcutaneous tissues, interrupted 4-0 Prolene was used to reapproximate the skin. Antibiotic ointment, Telfa, and a wrap was placed on the wound. The patient was sent to Recovery in stable condition. All instrument counts, needle counts, and lap counts were correct. Job ID: [id number]
== END 2019-04-01 17:35 | disposition home or self-care (01) ==
LOC: SDC 13:09
PROVIDERS: ATTEND Surgery
PROC: 0JQ10ZZ Repair Face Subcutaneous Tissue and Fascia, Open Approach (ICD-10-PCS; principal; 2019-04-01)
DX: S01.01XA Laceration without foreign body of scalp, initial encounter (principal); S01.81XA Laceration without foreign body of other part of head, initial encounter; I10 Essential (primary) hypertension; E11.9 Type 2 diabetes mellitus without complications; J44.9 Chronic obstructive pulmonary disease, unspecified; Z79.82 Long term (current) use of aspirin; Z79.899 Other long term (current) drug therapy; Z79.84 Long term (current) use of oral hypoglycemic drugs; Z87.891 Personal history of nicotine dependence; Z88.2 Allergy status to sulfonamides; Z91.018 Allergy to other foods; W01.0XXA Fall on same level from slipping, tripping and stumbling without subsequent striking against object, initial encounter; Y92.002 Bathroom of unspecified non-institutional (private) residence as the place of occurrence of the external cause
CPT/HCPCS: J0690; J3010

== ENCOUNTER 2019-04-15 11:01 | Emergency (ER) | payer MEDICARE ==
[~2019-04-15 11:01] MED LIST: Iopamidol 300 61% 100 ML VIAL FS ONE
[2019-04-15] MEDS ORDERED: Morphine 4 MG/ML VIAL ONE (11:58)
[2019-04-15] MEDS ORDERED: Ondansetron PF 4 MG/2 ML Vial ONE (11:58)
[2019-04-15 12:01] LABS: Bilirubin Small (Negative); Blood, Urine Negative (Negative); Glucose, Urine (Dipstick) Negative (Negative); Leukocyte Small (Negative); Nitrite Negative (Negative); Protein, Urine (Dipstick) 30 mg/dL (Neg-Trace); Urobilinogen 0.2 mg/dL (Less than 2)
[2019-04-15 12:02] LABS: Clarity Hazy (Clear)
[2019-04-15 12:03] LABS: #Basophils 0.2 thou/uL (0.0-0.2); #Eosinphils 0.2 thou/uL (0.0-0.7); #Monocytes 1.4 thou/uL (0.11-0.59); #Neutrophils 5.6 thou/uL (1.40-6.50); %Basophils 2.2 % (0.0-1.0); %Eosinophils 1.6 % (0.0-10.0); %Lymphocytes 28.8 % (21.0-51.0); %Monocytes 13.1 % (0.0-10.0); %Neutrophils 54.2 % (42.0-75.0); Hemoglobin 11.5 g/dL (12.0-16.0); Mean Corpuscular HGB CONC 32.4 g/dL (32.0-36.0); Mean Corpuscular Hemoglobin 28.8 pg (27.0-31.0); Mean Corpuscular Volume 88.8 fL (78.0-98.0); Platelet Count 149 thou/uL (130-400); RBC Distribution Width 15.1 % (11.5-14.5); Red Blood Cell (RBC) Count 3.98 mill/uL (4.20-5.40); White Blood Cell (WBC) Count 10.4 thou/uL (4.8-10.8)
[2019-04-15 12:07] LABS: Bacteria/HPF 2+ HPF (None Seen); RBC/HPF None Seen HPF (0-3); Renal Epithelial 0-3 HPF (None Seen)
[2019-04-15 12:08] LABS: PTT 23.2 SEC (22.9-36.1); Prothrombin Time 12.8 SEC (12.0-14.7)
[2019-04-15 12:17] LABS: ALT (SGPT) 40 U/L (8-55); AST (SGOT) 45 U/L (5-34); Albumin 3.8 g/dL (3.4-4.8); Alkaline Phosphatase 68 U/L (40-110); Anion Gap 16 mmol/L (10-20); BUN (Urea Nitrogen) 24 mg/dL (9.8-20.1); Bilirubin, Total 0.4 mg/dL (0.2-1.2); Calc. Creatinine Clearance 0 mL/min (70-130); Calcium 9.6 mg/dL (7.8-10.44); Carbon Dioxide 23 mmol/L (23-31); Chloride 104 mmol/L (98-107); Estimated GFR-MDRD 43; Globulin 3.6 g/dL (2.4-3.5); Glucose 89 mg/dL (83-110); Lipase 25 U/L (8-78); Potassium 4.9 mmol/L (3.5-5.1); Protein, Total 7.4 g/dL (6.0-8.3); Sodium 138 mmol/L (136-145)
--- NOTE | 2019-04-15 13:42 | CT ---
EXAM: CT of the chest with IV contrast CT of the abdomen and pelvis with IV contrast HISTORY: Left flank and left-sided rib pain after a fall 2 weeks ago. COMPARISON: CT noncontrast chest on 03/07/[address] abdomen and pelvis on 07/26/2018 FINDINGS: CT CHEST: Mediastinum: No mediastinal hematoma is seen, and there is no evidence of lymphadenopathy Vessels: Vascular calcifications are seen in the coronary arteries as well as involving the thoracic aorta. There are no findings to suggest an aortic injury. Lungs: There is evidence of mild COPD as well as mild chronic lung changes. Atelectasis is present at the left lung base. Pleural space: A tiny left pleural effusion is identified. No pneumothorax is seen. Osseous structures: There are mildly as well as mildly displaced fractures involving the le ft posterior lateral seventh through 11th ribs. Remote anterior right-sided rib fractures are seen. Chest wall: There is mild subcutaneous edema/contusion involving the subcutaneous soft tissues brisket puller olaterally on the left more inferiorly and extending to the upper abdomen. Surgical clips are seen in the right breast as well as in the left axilla with postsurgical changes related to left mastectom y. CT ABDOMEN/PELVIS: Liver: A subcentimeter hypodense lesion is seen in the lateral segment left hepatic lobe stable when compared to prior study as well as also visualized on CTA chest on 04/10/2017. Gallbladder: Multiple gallbladder calculi are again seen Spleen: Within normal limits. Pancreas: Within normal limits. Adrenal glands: Within normal limits. Kidneys: Within normal limits. Urinary bladder: Decompressed but otherwise grossly within normal limits. Vessels: Vascular calcifications are seen in the abdominal aorta and involving the iliac arteries. Th ere are no findings to suggest an aortic injury. Pelvis: No focal mass or abnormality. Reproductive organs: Evidence of hysterectomy. Peritoneum: No free air or free fluid. Retroperitoneum: No lymphadenopathy. Bowel: There is a calcification seen in a distal loop of ileum which is likely due to ingested materi al. There is colonic diverticulosis. Osseous structures: There is S-shaped scoliotic curvature of the thoracolumbar spine. Vertebroplasty changes are seen involving the T12 and L1 vertebral bodies. Multilevel degenerative changes are seen in the thoracic as well as lumbar spine. No obvious fracture is seen. There is trace grade 1 ant erolisthesis of L3 on L4 also present on MRI lumbar spine on 09/30/2017. No additional level of subluxation is present. There is suggestion of remote fracture and deformity involving the left pubic bone with degenerative changes seen at the pubic symphysis. No hip fracture or dislocation is seen bilaterally. IMPRESSION: 1. Mildly displaced left-sided rib fractures involving the seventh through 11th ribs with associated tiny left pleural effusion and atelectasis. No pneumothorax is identified.. 2. No acute findings are seen in the abdomen or pelvis. 3. Stable hypodense lesion left hepatic lobe. 4. Cholelithiasis. 5. Colonic diverticulosis. 6. Multilevel degenerative changes involving the thoracic and lumbar spine with vertebroplasty change s involving burst type fractures of the T12 and L1 vertebral bodies with trace anterolisthesis of L3 on L4 also stable finding. 7. Subcutaneous soft tissue swelling lower lateral left chest. 8. Above findings discussed with Dr. Baker in the emergency department on 04/15/2019 at 1336 hours.
== END 2019-04-15 14:07 | disposition home or self-care (01) ==
LOC: SCSER 11:01
DX: S22.42XA Multiple fractures of ribs, left side, initial encounter for closed fracture (principal); S30.1XXA Contusion of abdominal wall, initial encounter; E03.9 Hypothyroidism, unspecified; I10 Essential (primary) hypertension; J44.9 Chronic obstructive pulmonary disease, unspecified; M19.90 Unspecified osteoarthritis, unspecified site; Z87.891 Personal history of nicotine dependence; Z85.038 Personal history of other malignant neoplasm of large intestine; Z85.3 Personal history of malignant neoplasm of breast; W19.XXXA Unspecified fall, initial encounter
CPT/HCPCS: 71260; 74177; 80053; 81003; 81015; 83690; 85025; 85610; 85730; 86850; 86900; 86901; 94760; 96374; 96375; 96376; J2270; J2405; Q9967

== ENCOUNTER 2019-05-11 11:53 | Outpatient (CLI) | payer MEDICARE ==
--- NOTE | 2019-05-11 14:00 | RAD ---
CHEST TWO VIEWS: HISTORY: Chest pain. Rib fractures. COMPARISON: CT chest from 04/15/2019. FINDINGS: The cardiac silhouette and the pulmonary vasculature are unremarkable. The mediastinum is midline wit h aortic calcification. Shallow inspiration accentuates the pulmonary markings. No lobar consolidation or evidence of pneumothorax. Mild bibasilar atelectasis. Mildly distracted and non-healing fractures are apparent at the posterolateral aspect of left ribs 7 and 8. Metallic clips overly the left axilla. IMPRESSION: 1. No significant healing of the left posterolateral rib fractures. 2. Atherosclerosis. POS: [facility]
== END 2019-05-11 11:54 | disposition home or self-care (01) ==
LOC: RAD 11:53
PROVIDERS: ATTEND Surgery
DX: S22.42XD Multiple fractures of ribs, left side, subsequent encounter for fracture with routine healing (principal)
CPT/HCPCS: 71046

== ENCOUNTER 2021-11-13 18:08 | Observation (INO) | payer MEDICARE ==
[2021-11-13] MEDS ORDERED: traMADol HCl 50 MG TAB PO PRN (18:26)
[2021-11-13] MEDS ORDERED: Cyclobenzaprine 10 MG TAB PO PRN ×2 (18:26→20:52)
[2021-11-13] MEDS ORDERED: Morphine 2 MG/ML VIAL SLOW IVP PRN ×2 (18:26→20:49)
[2021-11-13] MEDS ORDERED: hydrALAZINE 20 MG/ML VIAL SLOW IVP PRN (18:28)
[2021-11-13] MEDS ORDERED: Ondansetron PF 4 MG/2 ML Vial IVP PRN (18:28)
[2021-11-13] MEDS ORDERED: Acetaminophen 325 MG TAB PO SCH (18:30)
[2021-11-13] MEDS ORDERED: Sodium Chloride 0.9% 500 ML IV SCH (18:45)
[2021-11-13] MEDS ORDERED: Sodium Chloride 0.9% 1,000 ML IV SCH (18:45)
[2021-11-13] MEDS ORDERED: Dextrose 5% in Water 1,000 ML IV PRN (18:53)
[2021-11-13] MEDS ORDERED: Dextrose 50% Abboject 50 ML SYRINGE SLOW IVP PRN (18:53)
[2021-11-13] MEDS ORDERED: HumaLOG 300 UNITS/3 ML VIAL SC PRN (18:54)
[2021-11-13 19:33] VITALS: BMI 23.0
[2021-11-13] MEDS ORDERED: Morphine 4 MG/ML VIAL SLOW IVP PRN (20:52)
[2021-11-13] MEDS ORDERED: Loratadine 10 MG TAB PO SCH ×2 (21:00→22:15)
[2021-11-13] MEDS: diphenhydrAMINE 25 MG CAP PO SCH (22:09)
[2021-11-13] MEDS ORDERED: Promethazine HCl 25 MG/ML VIAL IM PRN (22:09)
[2021-11-13] MEDS ORDERED: Ketorolac Tromethamine 30 MG/ML VIAL IVP SCH ×2 (22:15→23:59)
[2021-11-13] MEDS ORDERED: Venlafaxine HCl XR 75 MG CAP PO SCH (22:15)
[2021-11-13] MEDS ORDERED: Metoprolol Tartrate 25 MG TAB PO SCH (22:15)
[2021-11-13] MEDS: Donepezil HCl 5 MG TAB PO SCH ×2 (22:37→23:17)
[2021-11-13] MEDS: traMADol HCl 50 MG TAB PO SCH (23:18)
[2021-11-13] MEDS: Acetaminophen 500 MG TAB PO SCH (23:18)
[2021-11-13 23:30] LABS: SARS-CoV-2 NAA Rapid Test Not Detected (NotDetected)
[2021-11-13] MEDS ORDERED: traMADol HCl 50 MG TAB PO SCH (23:59)
[2021-11-14 05:59] LABS: Hemoglobin 10.6 g/dL (12.0-16.0); Hypochromia SLIGHT = 6-15 cells (100X) (0-5/hpf); Lymphocytes 26 % (21-51); MDiff Complete? YES; Mean Corpuscular HGB CONC 33.3 g/dL (32.0-36.0); Mean Corpuscular Hemoglobin 32.4 pg (27.0-31.0); Mean Corpuscular Volume 97.4 fL (78.0-98.0); Mean Platelet Volume 8.9 fL (7.4-10.4); Monocytes 18 % (0-10); Neutrophil 55 % (42-75); Platelet Count 112 thou/uL (130-400); Platelet Morphology Comment Appears Decreased; RBC Distribution Width 12.6 % (11.5-14.5); Reactive Lymphocytes 1 % (0-10); Red Blood Cell (RBC) Count 3.27 mill/uL (4.20-5.40); White Blood Cell (WBC) Count 8.9 thou/uL (4.8-10.8)
[2021-11-14 06:03] LABS: Anion Gap 11 mmol/L (10-20); BUN (Urea Nitrogen) 24 mg/dL (9.8-20.1); Calc. Creatinine Clearance 35 mL/min (70-130); Calcium 8.7 mg/dL (7.8-10.44); Carbon Dioxide 24 mmol/L (23-31); Chloride 105 mmol/L (98-107); Glucose 91 mg/dL (83-110); Phosphorus 3.6 mg/dL (2.3-4.7); Potassium 4.2 mmol/L (3.5-5.1); Sodium 136 mmol/L (136-145)
[2021-11-14] MEDS: Ketorolac Tromethamine 30 MG/ML VIAL IVP SCH ×3 (06:23→17:55)
[2021-11-14] MEDS: Acetaminophen 500 MG TAB PO SCH ×3 (06:23→17:55)
[2021-11-14] MEDS: traMADol HCl 50 MG TAB PO SCH ×3 (06:23→17:54)
[2021-11-14] MEDS: Mometasone 200 MCG/Formoterol 5 MCG 120 PUFF INHALER INH SCH ×2 (07:36→19:48)
[2021-11-14] MEDS ORDERED: Metoprolol Tartrate 25 MG TAB PO SCH (09:00)
[2021-11-14] MEDS ORDERED: Polyethylene Glycol 3350 17 GM Packet PO SCH (09:00)
[2021-11-14] MEDS ORDERED: Non-Formulary Item 1 EACH (Tiotropium [Spiriva Handihaler] 18 MCG Box) INH SCH (09:00)
[2021-11-14] MEDS ORDERED: Famotidine 20 MG TAB PO SCH (09:00)
[2021-11-14] MEDS: Senokot S 8.6-50 MG TAB PO SCH ×2 (09:44→20:06)
[2021-11-14] MEDS: Donepezil HCl 5 MG TAB PO SCH ×2 (09:45→20:09)
[2021-11-14] MEDS: Metoprolol Tartrate 25 MG TAB PO SCH ×2 (09:45→20:06)
[2021-11-14] MEDS: diphenhydrAMINE 25 MG CAP PO SCH (20:06)
[2021-11-14] MEDS ORDERED: Loratadine 10 MG TAB PO SCH (21:00)
[2021-11-14] MEDS ORDERED: Venlafaxine HCl XR 75 MG CAP PO SCH (21:00)
[2021-11-14] MEDS ORDERED: metFORMIN 850 MG TAB PO SCH (21:00)
[2021-11-14 21:59] VITALS: BP 124/73; TEMP 98.1
== END 2021-11-14 20:30 | disposition critical access hospital (66) ==
LOC: SURG A 18:08
PROVIDERS: ADMIT Surgery; ATTEND Surgery
DX: S82.101A Unspecified fracture of upper end of right tibia, initial encounter for closed fracture (principal); S82.831A Other fracture of upper and lower end of right fibula, initial encounter for closed fracture; G89.11 Acute pain due to trauma; J44.9 Chronic obstructive pulmonary disease, unspecified; F03.90 Unspecified dementia, unspecified severity, without behavioral disturbance, psychotic disturbance, mood disturbance, and anxiety; E11.9 Type 2 diabetes mellitus without complications; E78.5 Hyperlipidemia, unspecified; I10 Essential (primary) hypertension; G62.9 Polyneuropathy, unspecified; I70.0 Atherosclerosis of aorta; K80.20 Calculus of gallbladder without cholecystitis without obstruction; Z85.3 Personal history of malignant neoplasm of breast; Z79.890 Hormone replacement therapy; Z79.899 Other long term (current) drug therapy; Z88.1 Allergy status to other antibiotic agents; Z88.2 Allergy status to sulfonamides; Z88.5 Allergy status to narcotic agent; Z91.018 Allergy to other foods; Z96.653 Presence of artificial knee joint, bilateral; Z20.822 Contact with and (suspected) exposure to COVID-19; W18.30XA Fall on same level, unspecified, initial encounter; Y92.121 Bathroom in nursing home as the place of occurrence of the external cause
CPT/HCPCS: 71250; 80048; 82962; 83735; 84100; 85025; 94640 ×3; 97139 ×3; 97530 ×2; U0002; 36415; 36416; 96374; 96375; 96376; G0378; J1885; J2270; J7030; J7050; J7620